=== PATIENT | female | born 1985 | race Caucasian/White ===

== ENCOUNTER 2018-11-03 10:19 | Emergency (ER) | payer OTHER, SELFPAY ==
[~2018-11-03] VITALS: Ht 167.6 cm; Wt 88.9 kg
[2018-11-03 10:41] VITALS: BP 154/82
--- NOTE | 2018-11-03 10:53 | PHYS DOC ---
Past Medical History Past Medical History: No Pertinent History Additional Past Medical Histor: possible breast cancer Past Surgical History: Tubal ligation Alcohol Use: None Drug Use: Marijuana Adult General Chief Complaint Chief Complaint: VAGINAL PROBLEM HPI HPI 33-year-old female presents to ER via POV for complaints of vaginal irritation and discharge. Patient has concerns for STDs as she had unprotected sex with her ex boyfriend who has been "sleeping around". Patient reports symptoms started after sleeping with him last week. She reports she has had some dysuria. Reports LMP last month. Patient denies any abnormal vaginal bleeding. Patient denies concerns for as she has had a tubal ligation. Pt states she did take [id number] Azo for dysuria. Review of Systems Review of Systems Constitutional: Denies fever or chills [] Respiratory: Denies cough or shortness of breath [] Cardiovascular: No additional information not addressed in HPI [] GI: Denies abdominal pain, nausea, vomiting, bloody stools or diarrhea [] : Denies hematuria. Reports dysuria, vaginal discharge and irritation Musculoskeletal: Denies back pain or joint pain [] Integument: Denies rash or skin lesions [] Neurologic: Denies headache, focal weakness or sensory changes All other systems were reviewed and found to be within normal limits, except as documented in this note. Current Medications Current Medications Current Medications Medications (Trade) Dose Ordered Sig/[place] Start Time Stop Time Status Last Admin Dose Admin Azithromycin (Zithromax) 1,000 mg 1X ONCE 11/03/18 11:15 11/03/18 11:16 DC 11/03/18 11:21 1,000 MG Ceftriaxone Sodium (Rocephin Im) 250 mg 1X ONCE 11/03/18 11:15 11/03/18 11:16 DC 11/03/18 11:22 250 MG Allergies Allergies Allergies Coded Allergies Type Severity Reaction Last Updated Verified latex Allergy Intermediate rash 11/03/18 No Physical Exam Physical Exam Constitutional: Well developed, well nourished, no acute distress, non-toxic appearance. [] HENT: Normocephalic, atraumatic, oropharynx moist, nose normal. [] Eyes: Pupils equal, conjunctiva normal, no discharge. [] Neck: Normal range of motion, no tenderness, supple, no stridor. [] Cardiovascular: Heart rate regular rhythm, no murmur [] Lungs & Thorax: Bilateral breath sounds clear to auscultation- resp. equal/nonlabored Abdomen: Bowel sounds normal, soft, no tenderness/distention Skin: Warm, dry, no erythema, no rash. [] Back: No tenderness, no CVA tenderness. [] Extremities: No tenderness, no cyanosis, no clubbing, ROM intact, no edema. [] Neurologic: Alert and oriented X 3, normal motor function, normal sensory function, no focal deficits noted. [] Psychologic: Affect normal, judgement normal, mood normal. [] Pelvic Exam: EDT Commercial Teller present 1105 Abdomen: Nontender External Genitalia: Normal Skin- no lesions or rash Speculum: Normal vaginal mucosa, yellowish white malodorous discharge in vaginal vault without blood or clots. Cervical os closed Bimanual: No adnexal masses. Diffuse tenderness across lower abdomen, CMT + Current Patient Data Vital Signs Vital Signs Date Time Temp Pulse Resp B/P (MAP) Pulse Ox O2 Delivery O2 Flow Rate FiO2 11/03/18 10:41 98.0 91 16 154/82 (106) 99 Room Air 98.0 Lab Values Laboratory Tests Test 11/03/18 10:30 11/03/18 11:10 11/03/18 12:00 Urine Collection Type Unknown Urine Color Red Urine Clarity Turbid Urine pH 5.0 Urine Specific [place] >=1.030 Urine Protein mg/dL (NEG-TRACE) Urine Glucose (UA) Negative mg/dL (NEG) Urine Ketones (Stick) mg/dL (NEG) Urine Blood Negative (NEG) Urine Nitrite (NEG) Urine Bilirubin (NEG) Urine Urobilinogen Dipstick >=8.0 mg/dL (0.2 mg/dL) Urine Leukocyte Esterase Large (NEG) Urine RBC Occ /HPF (0-2) Urine WBC 1-4 /HPF (0-4) Urine Squamous Epithelial Cells Mod /LPF Urine Transitional Epithelial Cells Occ /LPF Urine Bacteria Few /HPF (0-FEW) Chlamydia DNA Probe Negative (Negative) Neisseria gonorrhoeae DNA Probe Negative (Negative) Maternal Serum HCG Beta Subunit < 1 mIU/mL (0-5) Microbiology 11/03/18 Wet Prep - Final, Complete 11/03/18 Urine Culture, Resulted Pending 11/03/18 Urine Culture Result 1 (ABISAI) - Final, Resulted EKG EKG [] Radiology/Procedures Radiology/Procedures [] Course & Med Decision Making Course & Med Decision Making Pertinent Labs reviewed. (See chart for details) Pt was evaluated in the ER for complaints of vaginal discharge on exam as well as wet mount patient had had findings suggestive of BV. She had concerns of STDs and didn't want prophylactic treatment so will be provided with Rocephin and azithromycin while in the ER. Will provide prescription for Flagyl with discharge paperwork. She advised on follow-up on her pending GC chlamydia tests as well as need for follow-up following completion of antibiotics to ensure infection completely treated. Patient advised on safe sex. With patient taking [id number] Azo UCG was not able to be ran so serum hCG obtained which was negative. Patient was found to have large leukocytes on UA so prescription for Keflex will also be provided. Education provided on signs and symptoms to return to ER. Discharge instructions were discussed. Pt to f/u with [employer] Person doctor for recheck and further care. Dragon Disclaimer Dragon Disclaimer This electronic medical record was generated, in whole or in part, using a voice recognition dictation system. Departure Departure Impression: Primary Impression: UTI (lower urinary tract infection) Additional Impressions: Bacterial vaginosis Concern about STD in female without diagnosis Disposition: 01 HOME, SELF-CARE Condition: STABLE Referrals: NO PCP (PCP) Patient Instructions: Bacterial Vaginosis, Safe Sex, Sexually Transmitted Disease, Urinary Tract Infection Additional Instructions: Condom use until follow-up with your doctor for retesting to ensure urinary infection is completely treated. Drink plenty of fluids daily. Tylenol and/or ibuprofen as needed for pain as directed on container. Follow-up on your test results in 2-3 days in medical records. Scripts Metronidazole (FLAGYL) 500 Mg Tablet 1 TAB PO BID, #14 TAB 0 Refills While taking this medication and for 3 days following completion avoid alcohol intake. Prov: LINDA BRICE APRN 11/03/18 Cephalexin (KEFLEX) 500 Mg Capsule 1 CAP PO BID, #14 CAP 0 Refills Prov: LINDA BRICE APRN 11/03/18 Problem Qualifiers LINDA BRICE APRN November 03, 2018 10:52
[2018-11-03 10:58] LABS: CLARITY,URINE TURBID; COLOR,URINE RED; UROBILINOGEN,URINE >=8.0 mg/dL (0.2 mg/dL)
[2018-11-03] MEDS ORDERED: AZITHROMYCIN 250 MG TABLET. PO ONE (11:15)
[2018-11-03] MEDS ORDERED: cefTRIAXone IM 250 MG VIAL IM ONE (11:15)
[2018-11-03 11:19] LABS: BACTERIA,URINE FEW /HPF (0-FEW); RBC,URINE OCC /HPF (0-2); SQUAMOUS EPITHELIAL CELL,UR MOD /LPF
[2018-11-03] MEDS ORDERED: CEPH-264 PO (11:32)
[2018-11-03] MEDS ORDERED: METR500T PO (11:32)
[2018-11-05 00:12] LABS: GC PROBE Negative (Negative)
== END 2018-11-03 12:31 | disposition home or self-care (01) ==
LOC: ER 10:19
DX: N39.0 Urinary tract infection, site not specified (principal); N76.0 Acute vaginitis; B96.89 Other specified bacterial agents as the cause of diseases classified elsewhere; Z20.2 Contact with and (suspected) exposure to infections with a predominantly sexual mode of transmission; Z98.51 Tubal ligation status; Z91.040 Latex allergy status
CPT/HCPCS: 81001; 84702; 87086; 87491; 87591; 96372; 99284; J0696; Q0111; Q0144